=== PATIENT | female | born 1945 | race Caucasian/White ===

== ENCOUNTER 2018-03-13 21:26 | Emergency (ER) | payer MEDICARE ==
[2018-03-13] MEDS ORDERED: Lidocaine 1% (PF) 30 ML VIAL ONE (21:47)
[2018-03-13] MEDS ORDERED: Adacel (T-DAP) 0.5 ML VIAL ONE (21:50)
[2018-03-13] MEDS ORDERED: Bacitracin Zinc 1 Packet ONE (22:26)
== END 2018-03-13 22:45 | disposition home or self-care (01) ==
LOC: NAV ERS 21:26
DX: S81.811A Laceration without foreign body, right lower leg, initial encounter (principal); E03.9 Hypothyroidism, unspecified; I10 Essential (primary) hypertension; M19.90 Unspecified osteoarthritis, unspecified site; Z79.899 Other long term (current) drug therapy; Z23 Encounter for immunization; W01.198A Fall on same level from slipping, tripping and stumbling with subsequent striking against other object, initial encounter
CPT/HCPCS: 12002; 90471; 90715; J2001

== ENCOUNTER 2018-03-22 09:34 | Emergency (ER) | payer MEDICARE | END 2018-03-22 10:25 | disposition home or self-care (01) | LOC: NAV ERS 09:34 | DX: S81.811D Laceration without foreign body, right lower leg, subsequent encounter (principal); E03.9 Hypothyroidism, unspecified; I10 Essential (primary) hypertension; M81.0 Age-related osteoporosis without current pathological fracture ==